=== PATIENT | female | born 1990 | race Caucasian/White ===

== ENCOUNTER 2016-07-11 15:30 | Emergency (ER) | payer MEDICAID ==
[~2016-07-11] VITALS: Ht 157.5 cm; Wt 60.0 kg
[2016-07-11 15:32] VITALS: BP 127/100; PULSE 106; RESP 20; TEMP 97.3; O2SAT 98
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
[2016-07-12] MEDS ORDERED: BUPR150CR PO (06:04)
[2016-07-12] MEDS ORDERED: PAXI40TA PO (06:04)
[2016-07-12] MEDS ORDERED: SERO100T PO (06:04)
[2016-07-12] MEDS ORDERED: SERO200T PO (06:04)
[2016-07-12] MEDS ORDERED: IBUP-232 PO (06:35)
== END 2016-07-11 15:55 | disposition left against medical advice (07) ==
LOC: NEPB 15:30
DX: Z86.59 Personal history of other mental and behavioral disorders (principal); Z72.0 Tobacco use
CPT/HCPCS: 99281

== ENCOUNTER 2016-07-12 05:48 | Emergency (ER) | payer MEDICAID ==
[~2016-07-12] VITALS: Ht 157.5 cm; Wt 70.5 kg
[2016-07-12 05:51] VITALS: BP 126/76; PULSE 92; RESP 16; TEMP 97.7; O2SAT 100
[2016-07-12] MEDS ORDERED: PAXI40TA PO (06:04)
[2016-07-12] MEDS ORDERED: BUPR150CR PO (06:04)
[2016-07-12] MEDS ORDERED: SERO100T PO (06:04)
[2016-07-12] MEDS ORDERED: SERO200T PO (06:04)
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
[2016-07-12] MEDS ORDERED: ACETAMINOPHEN 325 MG TAB PO ONE (06:15)
[2016-07-12] MEDS ORDERED: IBUP-232 PO (06:35)
[2016-07-12 06:43] VITALS: BP 126/76; PULSE 84; O2SAT 93
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
[2016-07-12 08:31] VITALS: BP 114/75; PULSE 85; RESP 18; O2SAT 96
[2016-07-12 08:46] VITALS: BP 114/85
== END 2016-07-12 09:06 | disposition home or self-care (01) ==
LOC: NEPE 05:48
DX: R51 Headache (principal); Y04.2XXA Assault by strike against or bumped into by another person, initial encounter; Y93.9 Activity, unspecified; Y92.511 Restaurant or cafe as the place of occurrence of the external cause; Y99.9 Unspecified external cause status
CPT/HCPCS: 70450; 72125; 80307

== ENCOUNTER 2016-07-13 05:45 | Emergency (ER) | payer MEDICAID ==
[~2016-07-13] VITALS: Ht 157.5 cm; Wt 69.6 kg
[~2016-07-13 05:45] MED LIST: BUPR150CR PO; IBUP-232 PO; PAXI40TA PO; SERO100T PO; SERO200T PO
[2016-07-13 05:50] VITALS: BP 144/80; PULSE 97; RESP 16; TEMP 98; O2SAT 99
[2016-07-13] MEDS ORDERED: IBUPROFEN 800 MG TAB PO ONE (06:45)
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
== END 2016-07-13 07:02 | disposition home or self-care (01) ==
LOC: NEPB 05:45
DX: M79.1 Myalgia (principal); Z72.0 Tobacco use; Z86.59 Personal history of other mental and behavioral disorders; Y09 Assault by unspecified means
CPT/HCPCS: 99284

== ENCOUNTER 2016-07-17 16:48 | Emergency (ER) | payer MEDICAID, OTHER ==
[~2016-07-17] VITALS: Ht 153.7 cm; Wt 69.5 kg
[2016-07-17 16:53] VITALS: BP 143/103; PULSE 95; RESP 16; TEMP 97.8; O2SAT 98
[2016-07-17 17:13] LABS: AUTOMATED NEUTROPHIL # 11.5 TH/MM3 (1.8-7.7); BASOPHIL % 0.2 % (0.0-2.0); EOSINOPHIL % 0.2 % (0.0-4.0); HEMO FLAGS DIFF FINAL; LYMPH % 14.4 % (9.0-44.0); LYMPHOCYTE # 2.1 TH/MM3 (1.0-4.8); MEAN CELL VOLUME 85.8 FL (80.0-100.0); MEAN CORPUSCULAR HEMOGLOBIN 30.1 PG (27.0-34.0); MEAN CORPUSCULAR HGB CONC 35.1 % (32.0-36.0); MONO % 7.6 % (0.0-8.0); NEUT % 77.6 % (16.0-70.0); PLATELET COUNT 306 TH/MM3 (150-450); RED BLOOD COUNT 5.25 MIL/MM3 (4.00-5.30); RED CELL DISTRIBUTION WIDTH 12.9 % (11.6-17.2); WHITE BLOOD COUNT 14.9 TH/MM3 (4.0-11.0)
[2016-07-17 17:35] LABS: ALT (GPT) 41 U/L (10-53); ANION GAP 8 MEQ/L (5-15); AST (GOT) 41 U/L (15-37); BICARBONATE 32.4 MEQ/L (21.0-32.0); BLOOD UREA NITROGEN 6 MG/DL (7-18); CHLORIDE 103 MEQ/L (98-107); GLOMERULAR FILTRATION RATE 89 ML/MIN (>89); POTASSIUM 3.3 MEQ/L (3.5-5.1); SODIUM (NA) 143 MEQ/L (136-145)
[2016-07-17 17:37] LABS: ALKALINE PHOSPHATASE 84 U/L (45-117); TOTAL BILIRUBIN ADULT 0.5 MG/DL (0.2-1.0)
[2016-07-17 19:04] LABS: AMPHETAMINE, URINE NEG (NEG); BARBITURATES, URINE NEG (NEG); COCAINE, URINE NEG (NEG)
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
[2016-07-17 20:02] VITALS: BP 143/88; PULSE 94; RESP 18; O2SAT 98
[2016-07-17 22:51] VITALS: BP 112/62; PULSE 82; RESP 18; O2SAT 98
[2016-07-18 02:21] VITALS: BP 132/74; PULSE 91; RESP 17; O2SAT 98
[2016-07-18 06:24] VITALS: BP 130/82; PULSE 79; RESP 18; O2SAT 99
[2016-07-18] MEDS ORDERED: HYDR50TA94 PO (10:53)
[2016-07-18] MEDS ORDERED: VIST50CA PO (10:56)
[2016-07-18] MEDS ORDERED: LURA20TA PO (10:56)
[2016-07-18] MEDS ORDERED: TOPA100T11 PO (10:58)
[2016-07-18] MEDS ORDERED: BENZ0.5T PO (10:59)
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
[2016-07-18] MEDS ORDERED: SERO200T PO (12:31)
[2016-07-18] MEDS ORDERED: TOPIRAMATE 100 MG TAB PO SCH (21:00)
[2016-07-18] MEDS ORDERED: QUEtiapine FUMARATE 200 MG TAB PO SCH (21:00)
[2016-07-23 07:31] LABS: BATH SALTS (MDPV) UR NEG (NEG); ECSTASY (MDMA) UR NEG (NEG); HEROIN (6-ACETYLMORPHINE) UR NEG (NEG); K2 SPICE UR NEG (NEG); OBMETHADONE UR NEG (NEG); OXYCODONE (PERCODAN) NEG (NEG); PHENCYCLIDINE URINE NEG (NEG)
== END 2016-07-18 14:19 | disposition home or self-care (01) ==
LOC: NEDAMB 16:48 → NEPJ 07-18 14:19
DX: F43.20 Adjustment disorder, unspecified (principal); F43.10 Post-traumatic stress disorder, unspecified; F31.9 Bipolar disorder, unspecified; Z72.0 Tobacco use; E87.6 Hypokalemia; D72.829 Elevated white blood cell count, unspecified; Z91.19 Patient's noncompliance with other medical treatment and regimen; Z91.14 Patient's other noncompliance with medication regimen
CPT/HCPCS: 80053; 80307; 85025; 99283; G0481